=== PATIENT | female | born 1985 | race Caucasian/White ===

== ENCOUNTER 2018-04-27 19:37 | Inpatient (IN) | payer MEDICAID ==
[2018-04-27] MEDS ORDERED: MISOPROSTOL 200 MCG TAB PR PRN (22:40)
[2018-04-27] MEDS ORDERED: EPSOM SALT 454 GM TP PRN (22:40)
[2018-04-27] MEDS ORDERED: LR 500 ML IV PRN (22:40)
[2018-04-27] MEDS ORDERED: OXYTOCIN/RINGERS LACTATE 1,000 ML IV PRN (22:40)
[2018-04-27] MEDS ORDERED: LIDOCAINE 1% 300 MG/30 ML SDV SC PRN (22:40)
[2018-04-27] MEDS ORDERED: IBUPROFEN 600 MG TAB PO PRN (22:40)
[2018-04-27] MEDS ORDERED: LR 1,000 ML IV PRN (22:40)
[2018-04-27] MEDS ORDERED: OLIVE OIL 118 ML BTL MISC PRN (22:40)
[2018-04-27] MEDS ORDERED: hydrOXYzine HCL 50 MG TAB PO PRN (22:46)
[2018-04-27] MEDS ORDERED: ZOLPIDEM TARTRATE 5 MG TAB PO PRN (22:48)
[2018-04-27] MEDS ORDERED: ACETAMINOPHEN 500 MG TAB PO PRN (22:48)
[2018-04-27] MEDS ORDERED: OXYTOCIN/RINGERS LACTATE 500 ML IV SCH (23:00)
[2018-04-27 23:05] LABS: PLATELET COUNT 158 10^3/uL (150-400)
--- NOTE | 2018-04-27 23:12 | PDGENHP ---
History and Physical History and Physical: CARE: [facility] HPI: Patient is a 37 yo G 1 P 0 at 38.1 weeks ega who presents to L&D with complaints of leaking clear fluid off and on since 0630 this am. She has had irregular mild contractions throughout the day, but nothing regular or painful. She states baby is active and denies vaginal bleeding. Baby is vertex via bedside ultrasound. She has not had a vaginal exam in the office. She started her care with [facility] - transferred care to [facility] at 29 weeks. EDC: 05/10/18 which is based on LMP: 08/03/18 which is known and consistent with Ultrasound at 11 weeks. 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 Review of Systems: Constitutional: Denies any fever, chills, or fatigue HEENT: denies any visual changes, difficulty swallowing, hearing loss Cardiovascular: Denies any chest pain, palpitations, leg swelling Respiratory: denies any cough, wheezing, or shortness of breathe GI: Denies any nausea, vomiting, diarrhea, constipation : denies any dysuria, urgency, frequency, vaginal bleeding Musculoskeletal: denies any muscle or bone pain Skin: denies any rashes Neuro: denies any headache, seizures, lightheadedness, dizziness, or loss of consciousness Psychiatric: denies any depression, anxiety, or SI/HI thoughts HISTORY: Previous OB history: none Past medical history: none Family history : non -contributory Past surgical history: several surgeries as a child for cleft palate, wisdom teeth, right knee-torn ACL Social history: denies tobacco, alcohol or recreational drug use Medications: PNV Allergies (list reaction): PCN - hives LABS: Rh: A pos ABS: Neg Rubella: Immune HbsAg: NR HIV: NR VDRL: NR 1hr: 130 GC: Neg Chlamydia: Neg GBS: neg BMI: (prepreg) 33 PHYSICAL EXAM: Constitutional: WN, A&Ox3 Skin: pink, warm, dry HEENT: normocephalic atraumatic, supple Heart: RRR, no murmur Chest: CTA-B Abdomen: Soft, nontender, gravid SVE: deferred due to prolonged SROM without regular contractions Extremities: sml edema, negative sharif's sign Neuro: grossly normal Psych: normal affect assessment: Reassuring FHTs, baseline 140 +accels, no decels, moderate variability Contractions: toco irregular, mild Assessment: 1) 32 yo G 1 P 0 with IUP@ 38.2 weeks ega 2) SROM clear fluid at 0630 - irregular mild contractions 3) GBS neg 4) Cat 1 FHR tracing Plan: 1) Admit to L&D 2) Cytotec X2 - Pitocin in AM if not laboring 3) diet as tolerated 4) pain control as patient desires 5) Limited vaginal exams 6) Anticipate
[2018-04-28] MEDS: MISOPROSTOL 50 MCG CAP PO SCH ×3 (00:20→23:56)
--- NOTE | 2018-04-28 06:13 | OBPROG ---
Labor Progress Note Assessment/Plan: Assessment: 32 y/o G1 SROM at 0630 04/27/18-clear fluid s/p 1 dose of cytotec VSS FHTs reassuring via intermitttent monitoring Contractions q 4-5 - mild-mod Plan: Report to Lorna Freitas CNM Will assess at 7 am to determine plan - pitocin vs expectant management 04/28/18 06:09 Subjective/Intrapartum Course: 04/28/18 06:13 In the tub, breathing with contractions. States she probably slept about an hour before contractions became too uncomfortable to sleep through. Objective: 04/27/18 22:20 Patient ABO/Rh A POSITIVE 04/27/18 22:20 - SVE Membranes: SROM Amniotic Fluid Color: Clear - Contraction Pattern Assessment Current Contraction Pattern: Irregular Oxytocin Orders Assessment - Pre-Induction/Augmentation Assessment Gestational Age: 38 week(s) and 1 day(s) ICD10 Worksheet Patient Problems: Problems Problem Status Onset Prolonged rupture of membranes Acute - ICD10 Problem Qualifiers (1) Prolonged rupture of membranes
[2018-04-28] MEDS ORDERED: LIDOCAINE 1% 300 MG/30 ML SDV ONE (07:05)
[2018-04-28] MEDS ORDERED: AMMONIA AROMATIC 1 EACH AMP IH ONE (07:05)
[2018-04-28] MEDS ORDERED: TERBUTALINE SULFATE 1 MG/ML VIAL ONE (07:05)
[2018-04-28] MEDS ORDERED: OLIVE OIL 118 ML BTL ONE (07:05)
[2018-04-28] MEDS ORDERED: MISOPROSTOL 200 MCG TAB ONE (07:06)
[2018-04-28] MEDS ORDERED: OXYTOCIN 10 UNIT/ML VIAL ONE (07:06)
--- NOTE | 2018-04-28 07:46 | OBPROG ---
Labor Progress Note Assessment/Plan: Assessment: Plan: Subjective/Intrapartum Course: 04/28/18 06:13 In the tub, breathing with contractions. States she probably slept about an hour before contractions became too uncomfortable to sleep through. Objective: 04/27/18 22:20 Patient ABO/Rh A POSITIVE 04/27/18 22:20 - SVE Dilation (cm): 8 Effacement (%): 80 Station: -3 Membranes: SROM Amniotic Fluid Color: Clear - Contraction Pattern Assessment Current Contraction Pattern: Regular (2-3 min) - AP Antepartum Course: 04/28/18 07:44 Pt requesting epidural at this time. Oxytocin Orders Assessment - Pre-Induction/Augmentation Assessment Gestational Age: 38 week(s) and 1 day(s) ICD10 Worksheet Patient Problems: Problems Problem Status Onset Labor without complication Acute Prolonged rupture of membranes Acute - ICD10 Problem Qualifiers (1) Labor without complication
[2018-04-28] MEDS ORDERED: BUPIVACAINE 0.25% 10 ML SDV ONE (08:00)
[2018-04-28] MEDS ORDERED: PHENYLEPHRINE HCL 100 MCG/ML SYR ONE ×2 (08:00→08:01)
[2018-04-28] MEDS ORDERED: fentaNYL 200 MCG, BUPIVACAINE 0.5% 20 ML in NS 100 ML EP ONE ×2 (08:30→16:30)
[2018-04-28] MEDS ORDERED: NALOXONE HCL 0.4 MG/ML INJ IVP PRN ×2 (08:30→09:18)
[2018-04-28] MEDS ORDERED: PHENYLEPHRINE HCL 100 MCG/ML SYR IVP PRN (09:18)
[2018-04-28] MEDS ORDERED: METOCLOPRAMIDE 10 MG/2 ML VIAL IVP PRN (09:18)
[2018-04-28] MEDS ORDERED: ONDANSETRON 4 MG/2 ML VIAL IVP PRN (09:18)
--- NOTE | 2018-04-28 09:18 | PREANESOB ---
Obstetric Pre-Anesthesia Info - General Info Proposed Procedure: RUSTY : 1 Para: 0 DANIEL: 05/10/18 Gestational Age: 38 week(s) and 1 day(s) - Info Status: Full Term FHR Pattern: Reassuring - Labor Status Cervical Dilation per last OB SVE: 8 Station per last OB SVE: -3 Amniotic Fluid Color: Clear Magnesium Sulfate in Use: No Indications for Labor Analgesia: Pain Control Labor Epidural: Proposed Anesthesia Allergies/Adverse Reactions: Allergy/AdvReac Type Severity Reaction Status Date / Time Penicillins Allergy Verified 04/27/18 20:27 Visit Medications: Generic Name Dose Route Start Last Admin Trade Name Freq PRN Reason Stop Dose Admin Acetaminophen 1,000 mg 04/27/18 22:48 04/28/18 00:17 Tylenol PO 10/24/18 22:47 1,000 mg Q6HRS PRN Administration Pain, Mild/Fever, Can Take PO Hydroxyzine HCl 100 mg 04/27/18 22:46 Hydroxyzine Hcl PO 10/24/18 22:45 ONCE PRN Sleep/Insomnia Lactated Ringer's 1,000 mls @ 0 mls/hr 04/27/18 22:40 04/27/18 22:25 Lr IV 04/28/18 22:39 1,000 mls PRN PRN Administration SEE PROTOCOL CONDITIONS Protocol Per Protocol Lactated Ringer's 500 mls @ 500 mls/hr 04/27/18 22:40 Lr IV 04/28/18 22:42 PRN PRN Maternal Hypotension Oxytocin/Lactated Ringer's 1,000 mls @ 125 mls/hr 04/27/18 22:40 Pitocin 20 Units/Lr (Premix) IV PRN PRN Post bleeding Oxytocin/Lactated Ringer's 500 mls @ 0 mls/hr 04/27/18 23:00 Pitocin 30 Units/Lr (Premix) IV 10/24/18 22:59 CONT YAJAIRA Protocol Per Protocol Ibuprofen 600 mg 04/27/18 22:40 Motrin PO ONCE PRN post , pain Lidocaine HCl 300 mg 04/27/18 22:40 Lidocaine Hcl 1% SC 10/24/18 22:39 ONCE PRN episiotomy Magnesium Sulfate 454 gm 04/27/18 22:40 Epsom Salt TP 10/24/18 22:39 Q1H PRN perineal discomfort Miscellaneous Information 1 ea 04/28/18 09:00 Message To Rn [facility] 10/25/18 08:59 DAILY YAJAIRA Miscellaneous Information 1 ea 04/28/18 09:00 Message To Rn [facility] 10/25/18 08:59 DAILY YAJAIRA Misoprostol 800 - 1,000 mcg 04/27/18 22:40 Cytotec MA ONCE PRN Vaginal Atony/Bleeding Misoprostol 50 mcg 04/28/18 02:00 04/28/18 00:20 Cytotec PO 10/25/18 01:59 50 mcg Q4 YAJAIRA Administration Naloxone HCl 0.4 mg 04/28/18 08:30 Narcan IVP 10/25/18 08:29 PRN PRN Sedation [place] Oil 118 ml 04/27/18 22:40 Sweet Oil MIS 10/24/18 22:39 ONCE PRN perineal massage Zolpidem Tartrate 5 mg 04/27/18 22:48 04/28/18 01:07 Ambien PO 10/24/18 22:47 5 mg HS PRN Administration Sleep/Insomnia Discontinued Medications Generic Name Dose Route Start Last Admin Trade Name Freq PRN Reason Stop Dose Admin Ammonia (Aromatic Spirit) Confirm 04/28/18 07:05 Ammonia Aromatic Administered 04/28/18 07:06 Dose 1 each IH .STK-MED ONE Bupivacaine HCl Confirm 04/28/18 08:00 Sensorcaine 0.25% Sdv Administered 04/28/18 08:01 Dose 10 ml .ROUTE .STK-MED ONE Fentanyl 200 mcg/ Bupivacaine 100 mls @ mls/hr 04/28/18 08:30 HCl 20 ml/ Sodium Chloride EP 04/28/18 08:31 ONCALL ONE As Directed Lidocaine HCl Confirm 04/28/18 07:05 Lidocaine Hcl 1% Administered 04/28/18 07:06 Dose 300 mg .ROUTE .STK-MED ONE Misoprostol Confirm 04/28/18 07:06 Cytotec Administered 04/28/18 07:07 Dose 1,000 mcg .ROUTE .STK-MED ONE [place] Oil Confirm 04/28/18 07:05 Sweet Oil Administered 04/28/18 07:06 Dose 118 ml .ROUTE .STK-MED ONE Oxytocin Confirm 04/28/18 07:06 Pitocin Administered 04/28/18 07:07 Dose 40 unit .ROUTE .STK-MED ONE Phenylephrine HCl Confirm 04/28/18 08:00 Neosynephrine Administered 04/28/18 08:01 Dose 1,000 mcg .ROUTE .STK-MED ONE Phenylephrine HCl Confirm 04/28/18 08:01 Neosynephrine Administered 04/28/18 08:02 Dose 1,000 mcg .ROUTE .STK-MED ONE Terbutaline Sulfate Confirm 04/28/18 07:05 Brethine Administered 04/28/18 07:06 Dose 1 mg .ROUTE .STK-MED ONE - Anesthesia History Response to Local Anesthetics: Not Applicable Anesthesia & Operative History: No Prior Problems Family Anesthesia History: Not Applicable - Vital Signs Height/Weight (Nursing): Height 154.94 cm Weight 90.718 kg - Focused Exam Neck exam: FROM Mallampati Score: Class 2 Mouth exam: normal dental/mouth exam Pulmonary: no respiratory distress Cardiovascular: regular rate and rhythym Labs: 04/27/18 22:20 Patient ABO/Rh A POSITIVE 04/27/18 22:20 - Plan Anesthetic Plan: RUSTY Consent Signed and on Chart: Yes Patient/Guardian Understands and Agrees to Plan: Yes Urgent/Emergent Case: Margaret brewer completed preop but documented later for safe timely pt care
--- NOTE | 2018-04-28 09:18 | POSTANESTH ---
Post Anesthetic Evaluation Cardiovascular Status: Normal, Stable Respiratory Status: Normal, Stable Level of Consciousness/Mental Status: Can Participate in Eval, Alert and Oriented Pain Control: Adequate, Prn Tx Ordered Nausea/Vomiting Control: Adequate, Prn Tx Ordered Complications Possibly Related to Anesthesia: None Noted
[2018-04-28] MEDS ORDERED: LR 500 ML IV SCH (09:30)
--- NOTE | 2018-04-28 09:40 | OBPROG ---
Labor Progress Note Assessment/Plan: Assessment: Plan: Subjective/Intrapartum Course: 04/28/18 06:13 In the tub, breathing with contractions. States she probably slept about an hour before contractions became too uncomfortable to sleep through. 04/28/18 09:37 Pt comfortable with epidural. Contractions q 2-3 min. Family and outside deliverer at bedside. Objective: 04/27/18 22:20 Patient ABO/Rh A POSITIVE 04/27/18 22:20 - SVE Dilation (cm): 9 Effacement (%): 90 Station: -2 Membranes: SROM Amniotic Fluid Color: Clear, Bloody - Contraction Pattern Assessment Current Contraction Pattern: Regular (2-3 min) - FHR Assessment Gonzalez FHR (bpm): 130 (early decels with occasional ctx) FHR Pattern Variability: Moderate FHR Category: 1 - AP Antepartum Course: 04/28/18 07:44 Pt requesting epidural at this time. Oxytocin Orders Assessment - Pre-Induction/Augmentation Assessment Gestational Age: 38 week(s) and 1 day(s) ICD10 Worksheet Patient Problems: Problems Problem Status Onset Labor without complication Acute Prolonged rupture of membranes Acute - ICD10 Problem Qualifiers (1) Labor without complication
[2018-04-28] MEDS ORDERED: LR 500 ML IV PRN (11:06)
--- NOTE | 2018-04-28 11:09 | OBPROG ---
Labor Progress Note Assessment/Plan: Assessment: Plan: Subjective/Intrapartum Course: 04/28/18 06:13 In the tub, breathing with contractions. States she probably slept about an hour before contractions became too uncomfortable to sleep through. 04/28/18 09:37 Pt comfortable with epidural. Contractions q 2-3 min. Family and cotton broker at bedside. 04/28/18 11:07 pt comfortable sit epidural. Contractions coupling approximately q5-6 min. Pt agrees to pitocin augmentation at this time. Objective: 04/27/18 22:20 Patient ABO/Rh A POSITIVE 04/27/18 22:20 - SVE Dilation (cm): 9 Effacement (%): 90 Station: -2 Membranes: SROM Amniotic Fluid Color: Clear, Bloody - Contraction Pattern Assessment Current Contraction Pattern: Regular (2-3 min) - AP Antepartum Course: 04/28/18 07:44 Pt requesting epidural at this time. Oxytocin Orders Assessment - Pre-Induction/Augmentation Assessment Presentation: Vertex Gestational Age: 38 week(s) and 1 day(s) Gestational Age Determined By: Ultrasound, Last Menstral Period Estimated Weight: 2501-3400g Membrane Status: Ruptured Current Sterile Vaginal Exam (SVE): /-2 Current Contraction Pattern: Irregular - Induction/Augmentation Consent Risks/Benefits of Procedure Reviewed/Pt Agrees to Proceed: Yes ICD10 Worksheet Patient Problems: Problems Problem Status Onset Labor without complication Acute Prolonged rupture of membranes Acute - ICD10 Problem Qualifiers (1) Labor without complication
[2018-04-28] MEDS ORDERED: OXYTOCIN/RINGERS LACTATE 500 ML IV SCH (11:30)
--- NOTE | 2018-04-28 14:09 | OBPROG ---
Labor Progress Note Assessment/Plan: Assessment: Plan: Subjective/Intrapartum Course: 04/28/18 06:13 In the tub, breathing with contractions. States she probably slept about an hour before contractions became too uncomfortable to sleep through. 04/28/18 09:37 Pt comfortable with epidural. Contractions q 2-3 min. Family and polystyrene bead molder at bedside. 04/28/18 11:07 pt comfortable sit epidural. Contractions coupling approximately q5-6 min. Pt agrees to pitocin augmentation at this time. Objective: 04/27/18 22:20 Patient ABO/Rh A POSITIVE 04/27/18 22:20 - SVE Dilation (cm): 9 Effacement (%): 90 Station: -1 Membranes: SROM Amniotic Fluid Color: Clear, Bloody - Contraction Pattern Assessment Current Contraction Pattern: Regular (2-3 min) - FHR Assessment Gonzalez FHR (bpm): 140 FHR Pattern Variability: Moderate FHR Category: 2 (occasional decel with contractions will, continue pitocin and continue to monitor. pitocin infusing at 3mU) - AP Antepartum Course: 04/28/18 07:44 Pt requesting epidural at this time. - Physical Exam Estimated Weight: 2501-3400g Oxytocin Orders Assessment - Pre-Induction/Augmentation Assessment Presentation: Vertex Gestational Age: 38 week(s) and 1 day(s) Estimated Weight: 2501-3400g ICD10 Worksheet Patient Problems: Problems Problem Status Onset Labor without complication Acute Prolonged rupture of membranes Acute - ICD10 Problem Qualifiers (1) Labor without complication
--- NOTE | 2018-04-28 19:02 | OBDEL ---
Info Type: Vaginal Presentation at Delivery: Vertex L&D Analgesia/Anesthesia Type: Epidural GBS+: No Intrapartum Medications: Generic Name Dose Route Start Last Admin Trade Name Freq PRN Reason Stop Dose Admin Acetaminophen 1,000 mg 04/27/18 22:48 04/28/18 00:17 Tylenol PO 10/24/18 22:47 1,000 mg Q6HRS PRN Administration Pain, Mild/Fever, Can Take PO Lactated Ringer's 1,000 mls @ 0 mls/hr 04/27/18 22:40 04/27/18 22:25 Lr IV 04/28/18 22:39 1,000 mls PRN PRN Administration SEE PROTOCOL CONDITIONS Protocol Per Protocol Oxytocin/Lactated Ringer's 500 mls @ 0 mls/hr 04/27/18 23:00 04/28/18 11:16 Pitocin 30 Units/Lr (Premix) IV 10/24/18 22:59 500 mls CONT YAJAIRA Administration Protocol Per Protocol Misoprostol 50 mcg 04/28/18 02:00 04/28/18 10:29 Cytotec PO 10/25/18 01:59 Not Given Q4 YAJAIRA Zolpidem Tartrate 5 mg 04/27/18 22:48 04/28/18 01:07 Ambien PO 10/24/18 22:47 5 mg HS PRN Administration Sleep/Insomnia Discontinued Medications Generic Name Dose Route Start Last Admin Trade Name Freanselmo PRN Reason Stop Dose Admin Fentanyl 200 mcg/ Bupivacaine 100 mls @ mls/hr 04/28/18 08:30 04/28/18 08:30 HCl 20 ml/ Sodium Chloride EP 04/28/18 08:31 100 mls ONCALL ONE Administration As Directed - Infant Care Provider Inventory Checker/CIVIL ENGINEER: Lynn Thomas Hospital Course Intrapartum: 04/28/18 06:13 In the tub, breathing with contractions. States she probably slept about an hour before contractions became too uncomfortable to sleep through. 04/28/18 09:37 Pt comfortable with epidural. Contractions q 2-3 min. Family and office services coordinator at bedside. 04/28/18 11:07 pt comfortable sit epidural. Contractions coupling approximately q5-6 min. Pt agrees to pitocin augmentation at this time. 04/28/18 18:44 mother progressed to complete with pitocin augmentation. FHT reassuring throughout second stage with decels during pushing but return to baseline between contractions. Mother made good progress with pushing. Baby developed tachycardia for approximately 1.5 hours prior to delivery, but mom progressed well with pushing. Indications for Delivery: SROM (prolonged rupture of membranes x 36 hours) Vaginal Delivery - Delivery Provider Delivery Physician/CNM: Lalita Freitas - Labor and Delivery Onset of Contractions Date: 04/27/18 Onset of Contractions Time: 11:00 Onset of Contractions Type: Augmented Rupture of Membranes Date: 04/27/18 Rupture of Membranes Time: 06:00 Rupture of Membranes Type: Spontaneous Amniotic Fluid Color: Clear, Bloody Dilation Complete Date: 04/28/18 Dilation Complete Time: 15:00 Placenta Delivery Date: 04/28/18 Placenta Delivery Time: 18:01 Total Hours of Labor: 31 Laceration: 2nd Degree (midline) Repair: 2-0, Chromic Vaginal Sponge Count Correct: Yes Vaginal Needle Count Correct: Yes Vaginal Sweep Performed: Yes EBL: 200 Delivery Events: Nuchal Cord Cord Gases: Cord Gases Cord Blood PCO2 63 mmHg (37-60) H 04/28/18 17:55 Cord Base Excess -13.7 mEq/L (-13.6--3.2) L 04/28/18 17:55 Cord ABG pH 7.09 (7.10-7.37) L 04/28/18 17:55 Cord VBG pH 7.27 (7.20-7.42) 04/28/18 17:55 - Medications Labor Augmentation/Induction Methods Used: Pitocin, Misoprostol (1 dose) Labor Augmentation/Induction Indication: Inadequate Contraction Frequency, Medical (prolonged rupture) Operative Report - Delivery Cord Gases: Cord Gases Cord Blood PCO2 63 mmHg (37-60) H 04/28/18 17:55 Cord Base Excess -13.7 mEq/L (-13.6--3.2) L 04/28/18 17:55 Cord ABG pH 7.09 (7.10-7.37) L 04/28/18 17:55 Cord VBG pH 7.27 (7.20-7.42) 04/28/18 17:55 Data DANIEL: 05/10/18 Gestational Age: 38 week(s) and 2 day(s) Gonzalez Delivery Date: 04/28/18 Delivery Time: 17:55 Sex of : Male Score (1 Min): 5 Score (5 Min): 7 ICD10 Worksheet Patient Problems: Problems Problem Status Onset Labor without complication Acute (normal spontaneous vaginal delivery) Acute Prolonged rupture of membranes Acute - ICD10 Problem Qualifiers (1) Labor without complication (2) (normal spontaneous vaginal delivery)
[2018-04-28] MEDS: ACETAMINOPHEN 325 MG TAB PO PRN (21:55)
[2018-04-28] MEDS: DOCUSATE SODIUM 100 MG CAP PO PRN (21:55)
[2018-04-28] MEDS: REGARDING ANTICOAG MISC SCH (23:54)
[2018-04-28] MEDS: DC NARCS MISC SCH (23:54)
[2018-04-29] MEDS: IBUPROFEN 600 MG TAB PO PRN ×4 (02:15→20:32)
[2018-04-29] MEDS: ACETAMINOPHEN 325 MG TAB PO PRN ×4 (05:51→23:21)
[2018-04-29] MEDS: DOCUSATE SODIUM 100 MG CAP PO PRN ×2 (08:24→20:32)
--- NOTE | 2018-04-29 08:50 | POSTANESTH ---
Post Anesthetic Evaluation Cardiovascular Status: Normal, Stable Respiratory Status: Normal, Stable Level of Consciousness/Mental Status: Can Participate in Eval, Alert and Oriented Pain Control: Adequate, Prn Tx Ordered Nausea/Vomiting Control: Adequate, Prn Tx Ordered Complications Possibly Related to Anesthesia: None Noted Notes: no adverse effects from RUSTY. able to ambulate, tolerating PO. no complaints.
[2018-04-29] MEDS: DC NARCS MISC SCH (08:59)
[2018-04-29] MEDS: REGARDING ANTICOAG MISC SCH (08:59)
--- NOTE | 2018-04-29 13:43 | OBPP ---
Progress Note Assessment/Plan: Assessment: [id number] s/p PPD#1 baby in NICU on abx Plan: routine pp care support prn rest/hydrate plan to d/c to [facility] tomorrow 04/29/18 13:32 Subjective/ Course: 04/29/18 11:55 Pt doing well, she denies any pain. states she is sore. She reports minimal bleeding. Baby is doing well, on IV abx, but stable. Objective: 04/27/18 22:20 Patient ABO/Rh A POSITIVE 04/27/18 22:20 Temp Pulse Resp BP Pulse Ox 36.4 C 74 16 114/72 93 04/29/18 08:31 04/29/18 08:31 04/29/18 08:31 04/29/18 08:31 04/29/18 08:31 Uterine Position/Fundal Height: Umbilicus -2, Midline Uterine Tone: Firm
[2018-04-30] MEDS: IBUPROFEN 600 MG TAB PO PRN ×3 (02:24→17:22)
[2018-04-30] MEDS: ACETAMINOPHEN 325 MG TAB PO PRN ×2 (05:28→13:17)
[2018-04-30 08:48] VITALS: BP 115/81
[2018-04-30] MEDS: DOCUSATE SODIUM 100 MG CAP PO PRN (08:48)
--- NOTE | 2018-04-30 11:57 | OBGCSDC ---
General Delivery Information - General Info : 1 Para: 1 Abortions: 0 Type: Vaginal L&D Analgesia/Anesthesia Type: Epidural Admission Date: 04/27/18 Labs: Patient ABO/Rh A POSITIVE 04/27/18 22:20 Hct 38.8 % (38.0-47.0) 04/27/18 22:20 - Hospital Course Antepartum: 04/28/18 07:44 Pt requesting epidural at this time. Intrapartum: 04/28/18 06:13 In the tub, breathing with contractions. States she probably slept about an hour before contractions became too uncomfortable to sleep through. 04/28/18 09:37 Pt comfortable with epidural. Contractions q 2-3 min. Family and plant accountant at bedside. 04/28/18 11:07 pt comfortable sit epidural. Contractions coupling approximately q5-6 min. Pt agrees to pitocin augmentation at this time. 04/28/18 18:44 mother progressed to complete with pitocin augmentation. FHT reassuring throughout second stage with decels during pushing but return to baseline between contractions. Mother made good progress with pushing. Baby developed tachycardia for approximately 1.5 hours prior to delivery, but mom progressed well with pushing. : 04/29/18 11:55 Pt doing well, she denies any pain. states she is sore. She reports minimal bleeding. Baby is doing well, on IV abx, but stable. 04/30/18 11:55 Doing well, breast feeding improved with last feed. Pain manageable with PO medication. Voiding well, passing flatus. No BM yet. Increase in pedal edema today, encouraged ambulating in halls and epsom salt bath. Vaginal - Delivery Provider Delivery Physician/CNM: Lalita Freitas - Diagnosis Labor: Augmented Rupture of Membranes Type: Spontaneous Amniotic Fluid Color: Clear, Bloody Laceration: 2nd Degree (midline) Repair: 2-0, Chromic Delivery Events: Nuchal Cord - Delivery EBL: 200 Data DANIEL: 05/10/18 Gestational Age: 38 week(s) and 4 day(s) Gonzalez Delivery Date: 04/28/18 Delivery Time: 17:55 Sex of Infant: Male [place] Weight (gm): 3146 g Score (1 Min): 5 Score (5 Min): 7 Discharge Information - Discharge Information Prescriptions: Ibuprofen [Motrin (*)] 600 mg PO Q6HRS PRN #30 tab PRN Reason: Pain, Mild Able To Take Po Condition: Good Instruction/Follow Up: Two Weeks, Four Weeks, Six Weeks
[2018-04-30] MEDS: REGARDING ANTICOAG MISC SCH (12:43)
[2018-04-30] MEDS: DC NARCS MISC SCH (12:43)
== END 2018-04-30 18:30 | disposition home or self-care (01) | DRG 560 ==
LOC: FLD 19:37 → OBSVTOIN 22:46 → FOB 04-28 21:34
PROVIDERS: ADMIT Advanced Practice Midwife; ATTEND Advanced Practice Midwife
PROC: 3E0P7GC Introduction of Other Therapeutic Substance into Female Reproductive, Via Natural or Artificial Opening (ICD-10-PCS; 2018-04-27)
PROC: 0KQM0ZZ Repair Perineum Muscle, Open Approach (ICD-10-PCS; principal; 2018-04-28)
PROC: 10E0XZZ Delivery of Products of Conception, External Approach (ICD-10-PCS; principal; 2018-04-28)
DX: O70.1 Second degree perineal laceration during delivery (principal); O99.214 Obesity complicating childbirth; E66.9 Obesity, unspecified; Z68.33 Body mass index [BMI] 33.0-33.9, adult; Z37.0 Single live birth; Z3A.38 38 weeks gestation of pregnancy
CPT/HCPCS: J2370; J2590; J3010; J3105

== ENCOUNTER → 2018-06-17 | Outpatient (CLI) | payer MEDICAID | LOC: FLACT 12:01 | PROVIDERS: ATTEND Advanced Practice Midwife | DX: O92.29 Other disorders of breast associated with pregnancy and the puerperium (principal) | CPT/HCPCS: G0463 ==